=== PATIENT | male | born 1995 | race Caucasian/White ===

== ENCOUNTER 2018-12-08 20:18 | Emergency (ER) | payer SELFPAY ==
[~2018-12-08] VITALS: Ht 167.6 cm; Wt 68.0 kg
[2018-12-08 20:20] VITALS: BP 130/88
--- NOTE | 2018-12-08 20:23 | NUR ---
TO LOBBY A/W BED, XRAY, AMBULATORY .
--- NOTE | 2018-12-08 21:25 | NUR ---
PATIENT AMBULATED TO ER BED 4.
--- NOTE | 2018-12-08 21:25 | NUR ---
PT PRESENTS TO ED WITH COUGH, SORE THROAT, AND LEFT EAR PAIN X2 DAYS. PT STATES NOT C/O AT THIS TIME BUT WAS FEELING THIS WAY FOR THE PAST FEW DAYS AND HERE AT ED UNDER HIS MOTHERS DEMAND. LUNGS CLEAR BILAT THROUGHOUT. 0/10 PAIN. THROAT NO EDEMA OR EXUDATE. LEFT EAR CANAL CLEAR, NO EDEMA, TYMPANIC MEMBRANE CLEAR AND CONCAVE. AFEBRILE. VSS. POSIOTINED IN BED FOR COMFORT. ER MD AWARE. CONTINUE TO MONITOR.
--- NOTE | 2018-12-08 22:07 | NUR ---
DR. JAIN EVALUATING PT BEDSIDE
[2018-12-08] MEDS ORDERED: IBUPROFEN 800 MG TAB PO ONE (22:15)
[2018-12-08] MEDS ORDERED: AMOXICILLIN 500 MG CAP PO ONE (22:15)
[2018-12-08] MEDS ORDERED: AMOXICILLIN 500 MG CAP ONE (22:52)
[2018-12-08 22:53] VITALS: BP 123/76
--- NOTE | 2018-12-08 22:53 | NUR ---
DISCHARGE INSTRUCTIONS GIVEN TO PT. 0/10 PAIN. AFEBRILE. LUNGS CLEAR BILAT THROUGHOUT. RX OF AMOXICILLIN AND MOTRIN GIVEN. SIDE EFFECTS EXPLAINED. INSTRUCTED TO F/U WITH WITH PCP AND WHEN TO RETURN TO ER. VERBALIZED UNDERSTANDING OF DC INSTRUCTIONS. ALL QUESTIONS ANSWERED.
== END 2018-12-08 22:53 | disposition home or self-care (01) ==
LOC: MED 20:18
DX: H66.92 Otitis media, unspecified, left ear (principal)
CPT/HCPCS: 71045; 99283